=== PATIENT | female | born 1995 | race Caucasian/White ===

== ENCOUNTER 2018-03-27 20:31 | Emergency (ER) | payer SELFPAY ==
[~2018-03-27] VITALS: Ht 157.5 cm; Wt 59.1 kg
[2018-03-27 20:40] VITALS: Ht 157.5 cm; Wt 59.1 kg
[2018-03-27 21:26] LABS: BASOPHILS 0.2 % (0-2); EOSINOPHILS 0.7 % (0-7); HEMATOCRIT 34.2 % (36.0-48.0); HEMOGLOBIN 11.3 g/dL (12-16); IMMATURE GRANULOCYTES 0.3 % (0-5); LYMPHOCYTES 31.8 % (15-50); MCH 27.4 pg (26.0-34.0); MCV 82.8 fL (80.0-100.0); MONOCYTES 8.6 % (2-11); NEUTROPHILS 58.4 % (40-80); PLATELET COUNT 257 10x3/uL (130-400); RBC 4.13 10x6/uL (4.00-5.40); RDW 13.2 % (11.5-14.5); WBC 9.5 10x3/uL (4.8-10.8)
[2018-03-27 21:45] LABS: ALBUMIN 3.6 g/dL (3.4-5.0); ALKALINE PHOSPHATASE 77 U/L (46-116); ALT (SGPT) 24 U/L (10-68); CALC OSMOLALITY 278 mosm/kg (275-300); CALCIUM 8.7 mg/dL (8.5-10.1); CHLORIDE - SERUM 106 mmol/L (98-107); CREATININE - SERUM 0.7 mg/dL (0.6-1.3); GLUCOSE 117 mg/dL (74-106); POTASSIUM - SERUM 3.5 mmol/L (3.5-5.1); PROTEIN - SERUM 7.5 g/dL (6.4-8.2); SODIUM 140 mmol/L (136-145); UREA NITROGEN 11 mg/dL (7-18); eGFR NON AFRICAN AMERICAN > 90 mL/min (90-120)
[2018-03-27 22:14] LABS: APPEARANCE CLEAR (CLEAR); BILIRUBIN NEGATIVE (NEGATIVE); COLOR YELLOW (YELLOW); GLUCOSE NEGATIVE (NEGATIVE); KETONE NEGATIVE (NEGATIVE); NITRITE NEGATIVE (NEGATIVE); PROTEIN NEGATIVE (NEGATIVE); UROBILINOGEN NORMAL (NORMAL)
[2018-03-27 22:16] LABS: BACTERIA MANY /hpf (NONE SEEN); HCG URINE NEGATIVE (NEGATIVE); MUCUS <1+ /lpf (NONE SEEN); RED CELLS - URINE 0-5 /hpf (0-5); WHITE CELLS - URINE >50 /hpf (0-5)
[2018-03-28] MEDS ORDERED: MACROBID100 MG PO (01:29)
[2018-03-28] MEDS ORDERED: KEFLEX500 MG PO (01:29)
[2018-03-28] MEDS ORDERED: PHENAZOPYRIDIN200 MG PO (01:29)
[2018-03-28 01:47] VITALS: BP 123/71
== END 2018-03-28 01:48 | disposition home or self-care (01) ==
LOC: D.ER 20:31
PROVIDERS: Family Medicine
DX: N39.0 Urinary tract infection, site not specified (principal); R31.9 Hematuria, unspecified; F17.200 Nicotine dependence, unspecified, uncomplicated